=== PATIENT | female | born 1990 | race American Indian/Alaskan Native ===

== ENCOUNTER 2020-04-23 11:56 | Emergency (ER) | payer SELFPAY ==
[2020-04-23] MEDS ORDERED: IPRATROPIUM 0.02% NEBU 2.5 ML IH ONE (12:34)
[2020-04-23] MEDS: ALBUTEROL 2.5 MG/3 ML NEBU IH ONE ×2 (12:34→13:46)
[2020-04-23] MEDS ORDERED: dexAMETHasone 4 MG/ML VIAL IV ONE (12:35)
[2020-04-23] MEDS ORDERED: MAGNESIUM SULFATE 2 GM/50 ML BAG IV ONE (12:43)
--- NOTE | 2020-04-23 12:43 | Emergency Department Report ---
ED Shortness of Breath HPI - General Chief Complaint: Upper Respiratory Infection Stated Complaint: CHEST PAIN/CONGESTION Time Seen by Provider: 04/23/20 12:33 Source: patient Mode of arrival: Ambulatory Limitations: No Limitations - History of Present Illness Initial Comments: Patient is 29 years old female with no significant past medical history except for episodes of acute bronchitis per patient report. Patient presented to the ER complaining of shortness of breath and difficulty in breathing for the last 3 days, worse today. Upon arrival to triage patient found to be tachypneic with oxygen saturation of 86% on room air. Patient immediately rushed to the main ED. Patient started on oxygen with improvement of her oxygen saturation to 95% on 4 L. Patient with significant work of breathing with accessory muscle use. Patient received albuterol, Atrovent, Decadron and magnesium sulfate 2 g IV. Patient denied any fever, chest pain, abdominal pain, nausea or vomiting. 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 MD Complaint: shortness of breath, cough -: days(s) (3) Consistency: constant Context: recent URI Treatments Prior to Arrival: none - Related Data Allergies Allergy/AdvReac Type Severity Reaction Status Date / Time No Known Allergies Allergy Unverified 04/23/20 12:09 ED Review of Systems ROS: Stated complaint: CHEST PAIN/CONGESTION Other details as noted in HPI Comment: All other systems reviewed and negative Constitutional: denies: chills, fever Respiratory: cough, shortness of breath, SOB with exertion, SOB at rest, wheez ing Cardiovascular: denies: chest pain, palpitations Gastrointestinal: denies: abdominal pain, nausea, vomiting Musculoskeletal: denies: back pain Neurological: denies: headache, weakness, numbness, paresthesias, confusion, abnormal gait ED Past Medical Hx - Past Medical History Previous Medical History?: No - Social History Smoking Status: Never Smoker Substance Use Type: None ED Physical Exam - General Limitations: No Limitations General appearance: alert, in distress - Head Head exam: Present: atraumatic, normocephalic, normal inspection - Eye Eye exam: Present: normal appearance - ENT ENT exam: Present: normal exam, normal orophraynx, mucous membranes moist - Neck Neck exam: Present: normal inspection, full ROM. Absent: tenderness, meningismus - Respiratory Respiratory exam: Present: respiratory distress, wheezes, rales, rhonchi, accessory muscle use, decreased breath sounds, prolonged expiratory - Cardiovascular Cardiovascular Exam: Present: tachycardia - GI/Abdominal GI/Abdominal exam: Present: soft, normal bowel sounds. Absent: distended, tenderness, guarding, rebound, rigid, organomegaly, mass, bruit, pulsatile mass, hernia - Extremities Exam Extremities exam: Present: normal inspection, full ROM, normal capillary refill. Absent: tenderness, pedal edema, calf tenderness - Back Exam Back exam: Present: normal inspection, full ROM. Absent: CVA tenderness (R), CVA tenderness (L) - Neurological Exam Neurological exam: Present: alert, oriented X3, CN II-XII intact - Psychiatric Psychiatric exam: Present: normal mood, anxious - Skin Skin exam: Present: warm, intact, normal color ED Course Vital Signs 04/23/20 04/23/20 12:07 12:45 Temperature 98.4 F Pulse Rate 78 Pulse Rate [ 96 H Bilateral] Respiratory 18 Rate Respiratory 16 Rate [Bilateral ] Blood Pressure 143/56 O2 Sat by Pulse 96 Oximetry ED Medical Decision Making - Lab Data Result diagrams: 04/23/20 12:58 04/23/20 12:58 - Radiology Data Radiology results: report reviewed - Medical Decision Making Patient is 29 years old female with no significant past medical history except for episodes of acute bronchitis per patient report. Patient presented to the ER complaining of shortness of breath and difficulty in breathing for the last 3 days, worse today. Upon arrival to triage patient found to be tachypneic with oxygen saturation of 86% on room air. Patient immediately rushed to the main ED. Patient started on oxygen with improvement of her oxygen saturation to 95% on 4 L. Patient with significant work of breathing with accessory muscle use. Patient received albuterol, Atrovent, Decadron and magnesium sulfate 2 g IV. Patient denied any fever, chest pain, abdominal pain, nausea or vomiting. 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 Labs reviewed and is unremarkable. Patient stated that she is feeling much better. Chest x-ray is unremarkable. Patient given prescription for albuterol, prednisone and Robitussin and advised to follow-up with her primary doctor in the next 2 to 3 days and to return to the ER if she develop any new symptoms. Critical care attestation.: If time is entered above; I have spent that time in minutes in the direct care of this critically ill patient, excluding procedure time. ED Disposition Clinical Impression: Asthmatic bronchitis, Shortness of breath Disposition: DC-01 TO HOME OR SELFCARE Is pt being admited?: No Condition: Stable Instructions: Chronic Bronchitis (ED), Bronchospasm, Adult Referrals: [facility] [Provider Group] - 3-5 Days
[2020-04-23 13:12] LABS: Basophils # (Auto) 0.1 K/mm3 (0.0-0.1); Basophils % (Auto) 0.7 % (0.0-1.8); Eosinophils # (Auto) 0.1 K/mm3 (0.0-0.4); Eosinophils % (Auto) 0.7 % (0.0-4.3); Hematocrit 42.5 % (30.3-42.9); Hemoglobin 13.6 gm/dl (10.1-14.3); Lymphocytes # (Auto) 1.9 K/mm3 (1.2-5.4); Mean Corpuscular HGB Conc 32 % (30-34); Mean Corpuscular Volume 87 fl (79-97); Monocytes % (Auto) 9.5 % (0.0-7.3); Red Blood Count 4.91 M/mm3 (3.65-5.03); Red Cell Distribution Width 15.7 % (13.2-15.2)
[2020-04-23 13:13] LABS: Platelet Count 35 K/mm3 (140-440)
[2020-04-23] MEDS ORDERED: HYDROmorphone 1 MG/1 ML INJ IV ONE (13:17)
[2020-04-23 13:32] LABS: Blood Urea Nitrogen 4 mg/dL (7-17); Calcium 9.8 mg/dL (8.4-10.2); Hemolysis Index 5
[2020-04-23 13:35] LABS: Alanine Aminotransferase 9 units/L (7-56); Albumin 4.3 g/dL (3.9-5)
--- NOTE | 2020-04-23 14:00 | XRay Report ---
CHEST 1 VIEW INDICATION / CLINICAL INFORMATION: Dyspnea. COMPARISON: None available. FINDINGS: SUPPORT DEVICES: None. HEART / MEDIASTINUM: No significant abnormality. LUNGS / PLEURA: No significant pulmonary or pleural abnormality. No pneumothorax. ADDITIONAL FINDINGS: No significant additional findings. IMPRESSION: 1. No acute findings. Signer Name: César Estrada MD Signed: 04/23/2020 1:56 PM Workstation Name: [id number]
[2020-04-23 14:04] LABS: BUN/Creatinine Ratio 6; Bilirubin,Direct < 0.2 mg/dL (0-0.2)
[2020-04-23] MEDS ORDERED: ALBUTEROL 2.5 MG/3 ML NEBU IH ONE (16:37)
[2020-04-23] MEDS ORDERED: KETOROLAC 30 MG/1 ML INJ IV ONE (17:16)
[2020-04-23 18:56] VITALS: BP 100/45
== END 2020-04-23 19:23 | disposition home or self-care (01) ==
LOC: ED 11:56
DX: J45.909 Unspecified asthma, uncomplicated (principal)
CPT/HCPCS: 36415; 71045; 80048; 80076; 82140; 84703; 85025; 87040; 94640; 96365; 96375; 99285; J1100; J1170; J1885; J3475; 94644

== ENCOUNTER 2020-06-09 09:34 | Emergency (ER) | payer SELFPAY ==
[2020-06-09 09:46] VITALS: BP 125/68
[2020-06-09 10:10] LABS: HCG Qualitative,Urine Negative (Negative)
[2020-06-09 10:11] LABS: Bilirubin,Urine NEG (Negative); Blood,Urine NEG (Negative); Color,Urine Straw (Yellow); Protein,Urine <15 mg/dL mg/dL (Negative); Urobilinogen,Urine < 2.0 mg/dL (<2.0)
--- NOTE | 2020-06-09 11:04 | Emergency Department Report ---
ED Female HPI - General Chief complaint: Urogenital-Female Stated complaint: PAINFUL URINE Source: patient Mode of arrival: Ambulatory Limitations: No Limitations - History of Present Illness Initial comments: 29-year-old -K[place] female presents to the emergency room for intermittent dysuria for the last 2 weeks. Patient denies any fever chills no abdominal pain no pelvic pain no nausea no vomiting no chest pain or shortness of breath. Patient states that her periods do in 2 weeks and she does have increased vaginal secretions. Her last menstrual period was 05/10/2020. Onset/Timin -: week(s) Location: suprapubic Severity scale (0 -10): 0 Consistency: intermittent Improves with: none Worsens with: urination Are you Now?: No Last Menstrual Period: 05/10/20 EDC: 02/14/21 Associated Symptoms: dysuria. denies: vaginal discharge, vaginal bleeding, abdominal pain, nausea/vomiting, fever/chills, hematuria, shortness of breath - Related Data Sexually active: Yes Previous Rx's Medication Instructions Recorded Last Taken Type Albuterol Mdi (or & Nicu Only) 2 puff IH QID PRN #1 inhalation 04/23/20 Unknown Rx [ProAir HFA Inhaler] Prednisone [predniSONE 10 mg 10 mg PO .TAPER #1 tab.ds.pk 04/23/20 Unknown Rx (6-Day Pack, 21 Tabs)] guaiFENesin/CODEINE [Robitussin AC] 10 ml PO TID PRN #100 ml 04/23/20 Unknown Rx Allergies Allergy/AdvReac Type Severity Reaction Status Date / Time No Known Allergies Allergy Unverified 04/23/20 12:09 ED Review of Systems ROS: Stated complaint: PAINFUL URINE Other details as noted in HPI Comment: All other systems reviewed and negative ED Past Medical Hx - Social History Smoking Status: Never Smoker - Medications Home Medications: Home Medications Medication Instructions Recorded Confirmed Last Taken Type Albuterol Mdi (or & Nicu Only) 2 puff IH QID PRN #1 inhalation 04/23/20 Unknown Rx [ProAir HFA Inhaler] Prednisone [predniSONE 10 mg 10 mg PO .TAPER #1 tab.ds.pk 04/23/20 Unknown Rx (6-Day Pack, 21 Tabs)] guaiFENesin/CODEINE [Robitussin AC] 10 ml PO TID PRN #100 ml 04/23/20 Unknown Rx ED Physical Exam - General Limitations: No Limitations General appearance: alert, in no apparent distress - Head Head exam: Present: atraumatic, normocephalic - Eye Eye exam: Present: normal appearance - ENT ENT exam: Present: mucous membranes moist - Neck Neck exam: Present: normal inspection, full ROM - Respiratory Respiratory exam: Absent: accessory muscle use - Extremities Exam Extremities exam: Present: normal inspection, full ROM - Back Exam Back exam: Present: normal inspection - Neurological Exam Neurological exam: Present: alert, oriented X3, normal gait - Psychiatric Psychiatric exam: Present: normal affect, normal mood - Skin Skin exam: Present: warm, dry, intact, normal color. Absent: rash ED Course Vital Signs 06/09/20 09:44 Temperature 98.5 F Pulse Rate 84 Respiratory 18 Rate Blood Pressure 125/68 O2 Sat by Pulse 98 Oximetry ED Medical Decision Making - Medical Decision Making 29-year-old -[place] female presents to the emergency room for intermittent dysuria for the last 2 weeks. Patient denies any fever chills no abdominal pain no pelvic pain no nausea no vomiting no chest pain or shortness of breath. Patient states that her periods do in 2 weeks and she does have increased vaginal secretions. Her last menstrual period was 05/10/2020. Urinalysis is negative urine test is negative. Discussed with patient she should follow-up with [facility]. Critical care attestation.: If time is entered above; I have spent that time in minutes in the direct care of this critically ill patient, excluding procedure time. ED Disposition Clinical Impression: Dysuria Disposition: DC-01 TO HOME OR SELFCARE Is pt being admited?: No Does the pt Need Aspirin: No Condition: Stable Instructions: Dysuria Additional Instructions: Please follow-up with your [facility] or primary care provider. Urinalysis and urine tests are negative. Referrals: [facility] [Provider Group] - 3-5 Days Forms: Work/School Release Form(ED)
== END 2020-06-09 11:16 | disposition home or self-care (01) ==
LOC: ED 09:34
DX: R30.0 Dysuria (principal); Z79.899 Other long term (current) drug therapy
CPT/HCPCS: 81001; 81025; 99283

== ENCOUNTER 2020-11-24 04:48 | Emergency (ER) | payer SELFPAY ==
[2020-11-24 04:53] VITALS: BP 101/57
[2020-11-24] MEDS ORDERED: IBUPROFEN 600 MG TAB PO ONE (05:29)
[2020-11-24] MEDS ORDERED: ACETAMINOPHEN 325 MG TAB PO ONE (05:29)
--- NOTE | 2020-11-24 05:29 | Emergency Department Report ---
ED Upper Extremity Inj HPI - General Chief Complaint: Shoulder Injury Stated Complaint: LT SHOULDER PAIN Source: patient Mode of arrival: Ambulatory Limitations: No Limitations - History of Present Illness Initial Comments: Patient is a 30-year-old -O[place]i female with a history of asthma who presents to the ED with complaint of acute onset persistent severe left shoulder pain after heavy lifting at work 3 days ago. Patient states that the pain was initially mild but subsequently got worse especially in the last 24 hours. Patient states that she works at [employer] and that her job entails heavy lifting and that this activity may have injured the left shoulder. Patient denies dizziness, syncope, chest pain, shortness of breath, neck pain, fall, numbness and tingling or weakness of upper extremities bilaterally, back pain, abdominal pain, change in vision or cough. MD Complaint: Injury to:: left, shoulder -: Sudden, days(s) (3), week(s) (1) Other Extremity Injury: Shoulder: Left (Pain) Other Injuries: none Handedness: right Place: work Severity scale (0 -10): 8 Worsens With: movement of extremity Context: injury (Heavy lifting) Associated Symptoms: denies other symptoms. denies: weakness, numbness, neck pain, suspects foreign body, nausea/vomiting, heard/felt popping sensat Treatments Prior to Arrival: NSAIDS - Related Data Previous Rx's Medication Instructions Recorded Last Taken Type Albuterol Mdi (or & Nicu Only) 2 puff IH QID PRN #1 inhalation 04/23/20 Unknown Rx [ProAir HFA Inhaler] Prednisone [predniSONE 10 mg 10 mg PO .TAPER #1 tab.ds.pk 04/23/20 Unknown Rx (6-Day Pack, 21 Tabs)] guaiFENesin/CODEINE [Robitussin AC] 10 ml PO TID PRN #100 ml 04/23/20 Unknown Rx Baclofen [Lioresal] 10 mg PO Q12H PRN #12 tab 11/24/20 Unknown Rx Ibuprofen [Motrin] 600 mg PO Q8H PRN #30 tablet 11/24/20 Unknown Rx traMADoL [Ultram] 50 mg PO Q6HR PRN #12 tablet 11/24/20 Unknown Rx Allergies Allergy/AdvReac Type Severity Reaction Status Date / Time No Known Allergies Allergy Unverified 04/23/20 12:09 ED Review of Systems ROS: Stated complaint: LT SHOULDER PAIN Other details as noted in HPI Constitutional: denies: chills, fever Eyes: denies: eye pain, eye discharge, vision change ENT: denies: ear pain, throat pain Respiratory: denies: cough, shortness of breath, wheezing Cardiovascular: denies: chest pain, palpitations Endocrine: no symptoms reported Gastrointestinal: denies: abdominal pain, nausea, diarrhea Genitourinary: denies: urgency, dysuria, discharge Musculoskeletal: arthralgia (Left shoulder pain). denies: back pain, joint swelling Skin: denies: rash, lesions Neurological: denies: headache, weakness, paresthesias Psychiatric: denies: anxiety, depression Hematological/Lymphatic: denies: easy bleeding, easy bruising ED Past Medical Hx - Past Medical History Previous Medical History?: No - Surgical History Past Surgical History?: No - Social History Smoking Status: Never Smoker - Medications Home Medications: Home Medications Medication Instructions Recorded Confirmed Last Taken Type Albuterol Mdi (or & Nicu Only) 2 puff IH QID PRN #1 inhalation 04/23/20 Unknown Rx [ProAir HFA Inhaler] Prednisone [predniSONE 10 mg 10 mg PO .TAPER #1 tab.ds.pk 04/23/20 Unknown Rx (6-Day Pack, 21 Tabs)] guaiFENesin/CODEINE [Robitussin AC] 10 ml PO TID PRN #100 ml 04/23/20 Unknown Rx Baclofen [Lioresal] 10 mg PO Q12H PRN #12 tab 11/24/20 Unknown Rx Ibuprofen [Motrin] 600 mg PO Q8H PRN #30 tablet 11/24/20 Unknown Rx traMADoL [Ultram] 50 mg PO Q6HR PRN #12 tablet 11/24/20 Unknown Rx ED Physical Exam - General Limitations: No Limitations General appearance: alert, in no apparent distress - Head Head exam: Present: atraumatic, normocephalic, normal inspection - Eye Eye exam: Present: normal appearance, PERRL, EOMI Pupils: Present: normal accommodation - ENT ENT exam: Present: normal exam, normal orophraynx, mucous membranes moist, TM's normal bilaterally, normal external ear exam - Neck Neck exam: Present: normal inspection, full ROM. Absent: tenderness - Respiratory Respiratory exam: Present: normal lung sounds bilaterally. Absent: respiratory distress, wheezes, stridor, chest wall tenderness, accessory muscle use, decreased breath sounds, prolonged expiratory - Cardiovascular Cardiovascular Exam: Present: regular rate, normal rhythm, normal heart sounds. Absent: systolic murmur, diastolic murmur, rubs, gallop - GI/Abdominal GI/Abdominal exam: Present: soft, normal bowel sounds. Absent: tenderness, guarding, rebound, hyperactive bowel sounds, hypoactive bowel sounds, organomegaly - Extremities Exam Extremities exam: Present: normal inspection, tenderness (Palpable severe left shoulder tenderness with limited range of motion due to pain), normal capillary refill. Absent: full ROM (Limited range of motion of left shoulder due to pain), pedal edema, joint swelling, calf tenderness - Back Exam Back exam: Present: normal inspection, full ROM. Absent: tenderness, CVA tenderness (R), CVA tenderness (L), muscle spasm, paraspinal tenderness, vertebral tenderness - Neurological Exam Neurological exam: Present: alert, oriented X3, CN II-XII intact, normal gait, reflexes normal - Psychiatric Psychiatric exam: Present: normal affect, normal mood - Skin Skin exam: Present: warm, dry, intact, normal color. Absent: rash ED Course Vital Signs 11/24/20 04:51 Temperature 98.0 F Pulse Rate 76 Respiratory 18 Rate Blood Pressure 101/57 O2 Sat by Pulse 97 Oximetry ED Medical Decision Making - Radiology Data Radiology results: report reviewed [address] [address] XRay Report Signed Patient: ANITA KAY MR#: [id number] : 1990 Acct:[id number] Age/Sex: 30 / F ADM Date: 11/24/20 Loc: ED Attending Dr: Ordering Physician: BETO AWAD Date of Service: 11/24/20 Procedure(s): XR shoulder 2+V LT Accession Number(s): [id number] cc: BETO AWAD Fluoro Time In Minutes: Left shoulder 3 views INDICATION: Left shoulder pain IMPRESSION: No fracture or subluxation identified. Signer Name: Fam Penn MD Signed: 11/24/2020 5:24 AM Workstation Name: [id number] Transcribed By: Dictated By: Fam Penn MD Electronically Authenticated By: Fam Penn MD Signed Date/Time: 11/24/20523 DD/ 3 TD/TT: Print Cancel - Medical Decision Making This is a 30-year-old -[place] female with a history of asthma who presents to the ED with complaint of acute onset persistent severe left shoulder pain after heavy lifting at work 3 days ago. Patient states that the pain was initially mild but subsequently got worse especially in the last 24 hours. Patient states that she works at [employer] and that her job entails heavy lifting and that this activity may have injured the left shoulder. In the ED, patient is alert and oriented x3 and is not in any distress. Patient was treated for pain in the ED and left shoulder x-ray shows no acute fractures or subluxations. Ligament injuries cannot be ruled out with x-ray. On reevaluation, patient's pain is moderately controlled with medications. Patient's left arm was immobilized in an arm sling and the patient will discharge home on pain medications and muscle relaxants and advised to follow-up with her primary care physician in 5 to 7 days for reevaluation. Patient was advised return to the ED immediately if symptoms get worse. - Differential Diagnosis Shoulder sprain; muscle strain; shoulder fracture; shoulder contusion Critical care attestation.: If time is entered above; I have spent that time in minutes in the direct care of this critically ill patient, excluding procedure time. ED Disposition Clinical Impression: Sprain of left shoulder Qualifiers: Encounter type: initial encounter Shoulder sprain type: unspecified sprain Qualified Code(s): S43.402A - Unspecified sprain of left shoulder joint, initial encounter Muscle strain of left shoulder region Qualifiers: Encounter type: initial encounter Qualified Code(s): S46.912A - Strain of unspecified muscle, fascia and tendon at shoulder and upper arm level, left arm, initial encounter Disposition: - TO HOME OR SELFCARE Is pt being admited?: No Does the pt Need Aspirin: No Condition: Stable Instructions: Shoulder Sprain, Muscle Strain, [id number] Additional Instructions: Left shoulder x-ray showed no acute fractures or subluxations. Therefore take medications with food, drink plenty of fluids and follow-up with your primary care physician in 5 to 7 days for reevaluation. Return to the ED immediately if symptoms get worse. Prescriptions: Baclofen [Lioresal] 10 mg PO Q12H PRN #12 tab PRN Reason: Muscle Spasm Ibuprofen [Motrin] 600 mg PO Q8H PRN #30 tablet PRN Reason: Pain traMADoL [Ultram] 50 mg PO Q6HR PRN #12 tablet PRN Reason: Pain Referrals: [facility] [Provider Group] - 3-5 Days Forms: Work/School Release Form(ED) Time of Disposition: 05:27 Print Language: ESTONIAN
== END 2020-11-24 05:30 | disposition home or self-care (01) ==
LOC: ED 04:48
DX: S43.492A Other sprain of left shoulder joint, initial encounter (principal); S46.912A Strain of unspecified muscle, fascia and tendon at shoulder and upper arm level, left arm, initial encounter; Z79.899 Other long term (current) drug therapy; X50.1XXA Overexertion from prolonged static or awkward postures, initial encounter; Y93.89 Activity, other specified; Y92.89 Other specified places as the place of occurrence of the external cause; Y99.8 Other external cause status
CPT/HCPCS: 99283